=== PATIENT | male | born 1970 | race Caucasian/White ===

== ENCOUNTER 2019-09-07 11:33 | Observation (INO) ==
[2019-09-07 12:24] LABS: Basophils # 0.1 K/mcL (0.0-0.2); Basophils % 0.4 %; Eosinophils # 0.1 K/mcL (0.0-0.6); Eosinophils % 0.5 %; Hematocrit 40.8 % (37.5-50.1); Hemoglobin 13.9 g/dL (12.9-16.9); Immature Granulocytes % 0.6 % (0-4); Lymphocytes # 1.5 K/mcL (0.6-4.6); Lymphocytes % 9.7 %; Mean Corpuscular HGB Conc 34.1 g/dL (31.6-35.5); Mean Corpuscular Hemoglobin 29.6 pg (28.0-33.3); Mean Platelet Volume 10.1 fL (9.4-12.4); Monocytes # 1.8 K/mcL (0.0-1.3); Monocytes % 11.9 %; Neutrophils # 11.6 K/mcL (1.6-8.9); Platelet Count 243 K/mcL (140-400); Red Blood Count 4.69 M/mcL (4.19-5.50); Red Cell Distribution Width 12.5 % (11.5-14.5); Segmented Neutrophils % 76.9 %; White Blood Count 15.1 K/mcL (4.3-11.1)
[2019-09-07 12:41] LABS: Alanine Aminotransferase 17 Units/L (7-52); Albumin 4.1 g/dL (3.5-5.7); Albumin/Globulin Ratio 1.4 (1.1-2.2); Alkaline Phosphatase 80 Units/L (34-104); Aspartate Amino Transferase 14 Units/L (13-39); BUN/Creatinine Ratio 14 (6-26); Bilirubin,Total 1.2 mg/dL (0.3-1.0); Blood Urea Nitrogen 20 mg/dL (6-20); Calcium 9.6 mg/dL (8.6-10.3); Carbon Dioxide 26 mEq/L (23-29); Chloride 91 mEq/L (98-107); Glucose 420 mg/dL (70-105); Osmolality,Calculated 292 (280-300); Potassium 4.4 mEq/L (3.5-5.1); Sodium 131 mEq/L (136-145); Total Protein 7.1 g/dL (6.4-8.9); eGFR For African Americans > 60 (> 60); eGFR For Non-African Americans 55 (> 60)
[2019-09-07] MEDS ORDERED: 0.9 % Sodium Chloride 1,000 ML IVC ONE ×2 (13:13→19:14)
[2019-09-07] MEDS ORDERED: Insulin Regular, Human 100 UNIT/ML SQ ONE (13:13)
[2019-09-07] MEDS ORDERED: (Semaglutide [Ozempic] 0.25 MG) SQ SCH (14:01)
[2019-09-07] MEDS ORDERED: Naloxone 0.4 MG/ML INJ IVP PRN (14:01)
[2019-09-07] MEDS ORDERED: Piperacillin/Tazobactam 3.375 GM in D5% in Water (Mini-Bag+) 100 ML IVPB ONE ×2 (14:08→15:06)
[2019-09-07] MEDS ORDERED: Pregabalin 75 MG CAPSULE PO SCH (15:00)
[2019-09-07] MEDS ORDERED: *HR* Metformin 500 MG TABLET PO SCH (17:00)
[2019-09-07] MEDS ORDERED: 0.9 % Sodium Chloride 1,000 ML IVC SCH (18:30)
[2019-09-07 20:28] VITALS: BP 110/58
[2019-09-08] MEDS ORDERED: *HR* Enoxaparin 40 MG/0.4 ML SYRINGE SQ SCH (06:00)
[2019-09-08] MEDS ORDERED: Fenofibrate 54 MG TABLET PO SCH (09:00)
[2019-09-08] MEDS ORDERED: *HR* Glimepiride 4 MG TABLET PO SCH (09:00)
[2019-09-08] MEDS ORDERED: Lisinopril 20 MG TABLET PO SCH (09:00)
[2019-09-08 14:32] LABS: Estimated Average Glucose 286 mg/dl
== END 2019-09-07 20:07 ==
LOC: EMEROOGRE 11:33 → INPGRE 11:33
PROVIDERS: ADMIT Family Medicine; ATTEND Family Medicine